=== PATIENT | male | born 1965 | race Caucasian/White ===

== ENCOUNTER 2017-04-08 05:38 | Day surgery (SDC) | payer MEDICAID ==
[2017-04-08] MEDS ORDERED: LIDOCAINE 1% 2 ML INJ ONE (05:43)
[2017-04-08] MEDS ORDERED: ceFAZolin 2 GM/DEXTROSE 100 ML IV ONE (05:52)
[2017-04-08] MEDS ORDERED: LR 1,000 ML IV ONE (06:09)
[2017-04-08] MEDS ORDERED: LIDOCAINE 1% 2 ML INJ ID PRN (06:09)
--- NOTE | 2017-04-08 06:48 | PDANEPAE ---
ANE History of Present Illness 52 year old male presents for vascular access port placement. ANE Past Medical History - Cardiovascular History Hx Hypertension: Yes Hx Arrhythmias: No Hx Chest Pain: No Hx Coronary Artery / Peripheral Vascular Disease: No Hx CHF / Valvular Disease: No Hx Palpitations: No - Pulmonary History Hx COPD: No Hx Asthma/Reactive Airway Disease: No Hx Recent Upper Respiratory Infection: No Hx Oxygen in Use at Home: No Hx Sleep Apnea: Yes Sleep Apnea Screening Result - Last Documented: Positive Pulmonary History Comment: cpap only - Neurologic History Hx Cerebrovascular Accident: No Hx Seizures: No Hx Dementia: No - Endocrine History Hx Diabetes: No Hypothyroid: No Hyperthyroid: No Obesity: yes, moderate - Renal History Hx Renal Disorders: No - Liver History Hx Hepatic Disorders: No - Neurological & Psychiatric Hx Hx Neurological and Psychiatric Disorders: Yes Neurological / Psychiatric History Comment: 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 Patient needs IVIG treatment, reason for which patient is getting vascular access port. - Cancer History Hx Cancer: No - Congenital Disorder History Hx Congenital Disorders: No - GI History Hx Gastrointestinal Disorders: No - Surgical History Prior Surgeries: back sx, ANE Review of Systems Review of Systems: - Exercise capacity Exercise capacity: <4 METS, limited by disability METS (RN): 2 METS - Systems Muscolosketal: Reports: back pain Neurological: Reports: numbness, other (Neuropathy) ANE Patient History - Allergies Allergies/Adverse Reactions: No Known Allergies Allergy (Verified 04/02/17 14:15) - Home Medications Home medications: home medication list seen and reviewed Home Medications: Amitriptyline HCl 04/02/17 [Last Taken 04/05/17] Atorvastatin Calcium 04/02/17 [Last Taken 04/07/17 10:00] Cetirizine 04/02/17 [Last Taken 04/07/17 10:00] Cromolyn Sodium 04/02/17 [Last Taken 04/07/17] Gabapentin 04/02/17 [Last Taken 04/07/17 18:00] Metoprolol Tartrate 04/02/17 [Last Taken 04/07/17 10:00] - NPO status NPO Status: no food or drink >8 hours NPO Since - Liquids (Date): 04/07/17 NPO Since - Liquids (Time): 23:00 NPO Since - Solids (Date): 04/07/17 NPO Since - Solids (Time): 23:00 - Anes Hx Anes Hx: no prior problems - Smoking Hx Smoking Status: Former smoker - Family Anes Hx Family Hx Anesthesia Complications: none ANE Labs/Vital Signs - Vital Signs Vital Signs: reviewed preoperatively; see RN documention for details Blood Pressure: 153/98 Heart Rate: 75 Respiratory Rate: 18 O2 Sat (%): 75 Height: 190.5 cm Weight: 151.5 kg ANE Physical Exam - Airway Neck exam: increased neck circumference, short neck Mallampati Score: Class 3 Mouth exam: poor dentition - Pulmonary Pulmonary: no respiratory distress - Cardiovascular Cardiovascular: regular rate and rhythym - ASA Status ASA Status: III ANE Anesthesia Plan Anesthesia Plan: GA with mask, MAC Total IV Anesthesia: Yes
[2017-04-08] MEDS ORDERED: MIDAZOLAM 2 MG/2 ML VIAL IVP ONE (07:03)
--- NOTE | 2017-04-08 07:03 | PDHPUP ---
History & Physical Update H&P update statement: This history and physical update is based on an assessment of the patient which was completed after admission or registration (within 24 hours), but prior to the surgery/procedure.
[2017-04-08] MEDS ORDERED: PROPOFOL/EMULSION 500 MG/50 ML BOTTLE IV ONE (07:06)
[2017-04-08] MEDS ORDERED: BUPIVACAINE 0.5% 30 ML SDV ONE (07:19)
[2017-04-08] MEDS ORDERED: LIDOCAINE 1% 300 MG/30 ML SDV ONE (07:19)
[2017-04-08] MEDS ORDERED: HEPARIN 1000 UNIT/1 ML MDV ONE (07:19)
[2017-04-08] MEDS ORDERED: HYDROCODONE/APAP 5/325 TAB PO PRN (08:10)
[2017-04-08] MEDS ORDERED: fentaNYL 100 MCG/2 ML INJ IVP PRN (08:10)
[2017-04-08] MEDS ORDERED: ONDANSETRON 4 MG/2 ML VIAL IVP PRN (08:10)
[2017-04-08] MEDS ORDERED: NALOXONE HCL 0.4 MG/ML INJ IVP PRN (08:10)
[2017-04-08] MEDS ORDERED: LR 500 ML IV PRN (08:10)
[2017-04-08] MEDS ORDERED: OXYCODONE/APAP 5/325 TAB PO PRN (08:45)
--- NOTE | 2017-04-08 08:57 | POSTOPPROG ---
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
[2017-04-08 09:48] VITALS: O2SAT 94
[2017-04-08 10:23] VITALS: BP 145/90; PULSE 72; RESP 20; TEMP 97.3
--- NOTE | 2017-04-08 11:11 | POSTANESTH ---
Post Anesthetic Evaluation Cardiovascular Status: Normal, Stable, Similar to Pre-Op Cond Respiratory Status: Normal, Stable, Similar to Pre-op Cond. Level of Consciousness/Mental Status: Can Participate in Eval, Alert and Oriented Pain Control: Adequate, Prn Tx Ordered Nausea/Vomiting Control: Adequate, Prn Tx Ordered Complications Possibly Related to Anesthesia: None Noted
--- NOTE | 2017-04-08 12:57 | GOP ---
[f rep st] OPERATIVE REPORT DATE OF OPERATION: SURGEON: Sabino Wetzel MD ANESTHESIOLOGIST: Moreno Hill MD. PREOPERATIVE DIAGNOSIS: Need for long-term intravenous access for neuropathy. POSTOPERATIVE DIAGNOSIS: Need for long-term intravenous access for neuropathy. PROCEDURE PERFORMED: Left internal jugular Port-A-Cath placement, tunneled catheter with subcutaneou s port. FINDINGS: Good placement of the catheter in the central circulation, confirmed by fluoroscopy. SPECIMENS: None. INDICATIONS: A 52-year-old gentleman with a history of neuropathy, and requiring long-term IVIG. DESCRIPTION OF PROCEDURE: Patient was brought to the operating room, where after induction of IV sed ation, his chest was prepped with chlorhexidine and draped sterilely. A time-out procedure was perfor med according to institutional standards. Ultrasound was used to identify the jugular vein, which was cannulated with a single needle stick. The cannulation was then maintained with a wire with sterile Seldinger technique. A catheter was tunneled from the left chest to the neck, and then truncated to a n appropriate length, approximately 18 cm from the insertion site. The catheter was placed into the c entral circulation through an obturator introducer sheath. The introducer sheath was peeled away, and the catheter was confirmed to be in the central circulation. Good draw and flush are noted, and the catheter was secured with a port at the tunneled site after making a subcutaneous pocket. Hemostasis was assured. 3-0 Prolene was used to secure the port to the chest wall, and 4 Monocryl was used to re approximate the skin. Dermabond was applied. The patient was awakened, taken to the recovery room in stable condition. Needle, instrument, and sponge counts correct x2. COMPLICATIONS: None. /[id number]/MODL
== END 2017-04-08 10:25 | disposition home or self-care (01) ==
LOC: FSGY 05:38
PROVIDERS: ATTEND Surgery
PROC: 02HV33Z Insertion of Infusion Device into Superior Vena Cava, Percutaneous Approach (ICD-10-PCS; principal; 2017-04-08 07:15)
PROC: 0JH60XZ Insertion of Tunneled Vascular Access Device into Chest Subcutaneous Tissue and Fascia, Open Approach (ICD-10-PCS; principal; 2017-04-08 07:15)
DX: Z45.2 Encounter for adjustment and management of vascular access device (principal); G61.81 Chronic inflammatory demyelinating polyneuritis
CPT/HCPCS: C1788; J0690; J1642; J1644; J2250; J2704

== ENCOUNTER → 2018-09-23 | Outpatient (CLI) | payer MEDICAID | LOC: FIMAGING 15:01 | PROVIDERS: ATTEND Surgery | DX: Z45.2 Encounter for adjustment and management of vascular access device (principal) ==